=== PATIENT | male | born 1985 | race Caucasian/White ===

== ENCOUNTER 2019-05-27 09:07 | Day surgery (SDC) | payer OTHER ==
[2019-05-27] MEDS ORDERED: PROPOFOL 20 ML (09:37)
[2019-05-27] MEDS ORDERED: FENTAnyl 50 MCG/ML VIAL (09:38)
== END 2019-05-27 14:26 | disposition home or self-care (01) ==
LOC: GIL 09:07
DX: K29.80 Duodenitis without bleeding (principal)
CPT/HCPCS: 43239; 88305